=== PATIENT | female | born 1980 | race Caucasian/White ===

== ENCOUNTER 2019-09-07 18:31 | Emergency (ER) | payer BC ==
[2019-09-07 22:11] LABS: ABS Basophils 0.1 10^3/ul (0-0.2); ABS Eosinophils 0.1 10^3/ul (0-0.6); ABS Lymphocytes 2.3 10^3/ul (1.0-4.8); ABS Monocytes 0.5 10^3/ul (0-0.8); ABS Neutrophils 3.3 10^3/ul (1.5-7.7); Eosinophil % 1.2 %; Hematocrit 38 % (35-47); Hemoglobin 12.4 g/dL (12.0-16.0); Lymphocyte % 37.1 %; Mean Corpuscular HGB Conc 33 g/dL (31-36); Mean Corpuscular Hemoglobin 27 pg (27-31); Mean Corpuscular Volume 83 fL (80-97); Mean Platelet Volume 8.6 fL (7.4-10.4); Platelet Count 259 10^3/uL (150-450); Red Blood Count 4.55 10^6 /uL (3.70-4.87); Red Cell Distribution Width 16 % (10-15); White Blood Count 6.3 10^3/uL (3.5-10.8)
[2019-09-07 22:18] LABS: INR 1.04 (0.82-1.09)
[2019-09-07 22:37] LABS: ALT 14 U/L (7-52); AST 13 U/L (13-39); Albumin 4.2 g/dL (3.2-5.2); Albumin/Globulin Ratio 1.6 (1-3); Alkaline Phosphatase 50 U/L (34-104); Anion Gap 6 mmol/L (2-11); BUN/Creatinine Ratio 5.9 (8-20); Blood Urea Nitrogen 6 mg/dL (6-24); CO2 Carbon Dioxide 25 mmol/L (22-32); Calcium 9.2 mg/dL (8.6-10.3); Chloride 106 mmol/L (101-111); EGFR Non-African American 60.3 (>60); Globulin 2.6 g/dL (2-4); Glucose 112 mg/dL (70-100); Magnesium 1.8 mg/dL (1.9-2.7); Potassium 3.3 mmol/L (3.5-5.0); Sodium 137 mmol/L (135-145); Total Protein 6.8 g/dL (6.4-8.9)
[2019-09-07 22:46] LABS: C Reactive Protein < 1.00 mg/L (<8.01); HCG Pregnancy < 0.60 mIU/mL
[2019-09-07 22:50] LABS: Alcohol < 10 mg/dL (<10)
[2019-09-07 23:05] LABS: TSH (Thyroid Stimulating Horm) 2.03 mcIU/mL (0.34-5.60)
[2019-09-07] MEDS ORDERED: KCL 10 MEQ/50 ML IVPREMIX* 10 MEQ/50 ML BAG IV ONE (23:40)
--- NOTE | 2019-09-07 23:50 | ED ---
Complex/Multi-Sys Presentation - HPI Summary HPI Summary: This pt is a 39 Y/O F presenting to [facility] after being recommended here from urgent care due to weakness and vomiting that has been present since 09/04/19. She states that she has had bouts of nausea and diarrhea since the onset. She states that she was unable to get out of bed this morning when the onset occurred and she states that she felt achy and sleepy. She states that she has been feeling fatigued since 08/28/19 when she arrived back from [place]. She states that she had to call in sick to work today which is unlike her. She states that her normal heart rate is at 80-100 BPM and states that a rate of 57 BPM is very unlike her. She denies any fevers, chills, coughs, and headaches. She has no aggravating or alleviating factors. She states that she has a PMHx of depression and ran out of her medication but she has an appointment on the 23 of September. She states that a coworker gave her Clonidine to help her with anxiety and insomnia. She states that she has a SHx of smoking tobacco through electronic cigarettes. She states a FHx of HTN and her father had a ND that he survived from. She states that her sister was diagnosed with Cameron 3 weeks ago. - History Of Current Complaint Chief Complaint: EDWeakness Time Seen by Provider: 09/07/19 22:26 Hx Obtained From: Patient Onset/Duration: Gradual Onset, Lasting Days - 10, Still Present, Worse Since - today Timing: Constant Severity Currently: Moderate - 4/10 Severity Initially: Mild Location: Negative Aggravating Factor(s): nothing Alleviating Factor(s): nothing Associated Signs And Symptoms: Positive: Weakness, Palpitations - bradycardia, Nausea, Vomiting, Diarrhea, Other - fatigue, myalgia. Negative: Headache, Fever Related History: Recent Illness - states that her sister was Dx with mono, Other - recently flew from [place] - Allergies/Home Medications Allergies/Adverse Reactions: Allergies Allergy/AdvReac Type Severity Reaction Status Date / Time clonazepam [From Klonopin] Allergy Altered Verified 09/07/19 18:53 Mental Status PMH/Surg Hx/FS Hx/Imm Hx Previously Healthy: Yes Sensory History: Denies: Hx Contacts or Glasses Opthamlomology History: Denies: Hx Contacts or Glasses Psychiatric History: Reports: Hx Anxiety, Hx Depression, Other Psychiatric Issues/Disorders - Insomnia - Cancer History Hx Chemotherapy: No Hx Radiation Therapy: No - Surgical History Surgical History: None - Immunization History Immunizations Up to Date: Yes Infectious Disease History: No Infectious Disease History: Denies: Traveled Outside the [place] in Last 30 Days - Family History Known Family History: Positive: Cardiac Disease - Father had an ND, Hypertension - Social History Occupation: Employed Full-time Lives: With Family Alcohol Use: None Hx Substance Use: No Substance Use Type: Reports: None Hx Tobacco Use: Yes Smoking Status (MU): Current Every Day Smoker Type: eCigarettes Review of Systems Positive: Fatigue. Negative: Fever, Chills Positive: Palpitations - bradycardia Negative: Cough Positive: Vomiting, Diarrhea, Nausea Positive: Myalgia Positive: Weakness. Negative: Headache All Other Systems Reviewed And Are Negative: Yes Physical Exam - Summary Physical Exam Summary: General: Well-developed, Well-nourished female. No acute distress. HEENT: Normocephalic, Atraumatic. Eyes: Conjuctiva normal, PERRL. Oropharynx: Clear, mucous membranes moist, (-) exudates. Neck: Soft, FROM, (-) lymphadenopathy, (-) thyromegaly, (-) JVD. Cardiovascular: Normal sinus rhythm, (-) murmur. Lungs: Clear to auscultation bilaterally (-) wheezes, (-) rales, (-) rhonchi. Abdomen: Soft, non-tender, non-distended, (-) organomegaly, normal bowel sounds. Back: (-) CVA tenderness Extremities: No edema. Skin: Warm, dry, (-) rash. Neuro: Alert and oriented x3, no focal deficits. Psychiatric: Mood normal, affect normal. Triage Information Reviewed: Yes Vital Signs On Initial Exam: Initial Vitals Temp Pulse Resp BP Pulse Ox 98.5 F 49 16 97/60 100 09/07/19 18:48 09/07/19 18:48 09/07/19 18:48 09/07/19 18:48 09/07/19 18:48 Vital Signs Reviewed: Yes Procedures - Sedation Patient Received Moderate/Deep Sedation with Procedure: No Diagnostics - Vital Signs Vital Signs Temp Pulse Resp BP Pulse Ox 09/07/19 22:30 58 100 12/12/19 22:29 61 95/52 100 09/07/19 20:48 98.3 F 57 16 93/61 100 09/07/19 18:48 98.5 F 49 16 97/60 100 - Laboratory Lab Results: Lab Results 09/07/19 09/07/19 09/07/19 Range/Units 22:06 22:06 22:06 WBC 6.3 (3.5-10.8) 10^3/uL RBC 4.55 (3.70-4.87) 10^6 /uL Hgb 12.4 (12.0-16.0) g/dL Hct 38 (35-47) % MCV 83 (80-97) fL MCH 27 (27-31) pg MCHC 33 (31-36) g/dL RDW 16 H (10-15) % Plt Count 259 (150-450) 10^3/uL MPV 8.6 (7.4-10.4) fL Neut % (Auto) 53.1 % Lymph % (Auto) 37.1 % Cameron % (Auto) 7.7 % Eos % (Auto) 1.2 % Baso % (Auto) 0.9 % Absolute Neuts (auto) 3.3 (1.5-7.7) 10^3/ul Absolute Lymphs (auto) 2.3 (1.0-4.8) 10^3/ul Absolute Monos (auto) 0.5 (0-0.8) 10^3/ul Absolute Eos (auto) 0.1 (0-0.6) 10^3/ul Absolute Basos (auto) 0.1 (0-0.2) 10^3/ul Absolute Nucleated RBC 0.0 10^3/ul Nucleated RBC % 0.0 ESR Pending INR (Anticoag Therapy) (0.82-1.09) Sodium 137 (135-145) mmol/L Potassium 3.3 L (3.5-5.0) mmol/L Chloride 106 (101-111) mmol/L Carbon Dioxide 25 (22-32) mmol/L Anion Gap 6 (2-11) mmol/L BUN 6 (6-24) mg/dL Creatinine 1.02 H (0.51-0.95) mg/dL Est GFR ( Amer) 73.0 (>60) Est GFR (Non-Af Amer) 60.3 (>60) BUN/Creatinine Ratio 5.9 L (8-20) Glucose 112 H (70-100) mg/dL Lactic Acid 0.7 (0.5-2.0) mmol/L Calcium 9.2 (8.6-10.3) mg/dL Magnesium 1.8 L (1.9-2.7) mg/dL Total Bilirubin 0.20 (0.2-1.0) mg/dL AST 13 (13-39) U/L ALT 14 (7-52) U/L Alkaline Phosphatase 50 (34-104) U/L Troponin I 0.00 (<0.03) ng/mL C-Reactive Protein < 1.00 (<8.01) mg/L Total Protein 6.8 (6.4-8.9) g/dL Albumin 4.2 (3.2-5.2) g/dL Globulin 2.6 (2-4) g/dL Albumin/Globulin Ratio 1.6 (1-3) TSH 2.03 (0.34-5.60) mcIU/mL Beta HCG, Quant < 0.60 mIU/mL Serum Alcohol < 10 (<10) mg/dL 09/07/19 Range/Units 22:06 WBC (3.5-10.8) 10^3/uL RBC (3.70-4.87) 10^6 /uL Hgb (12.0-16.0) g/dL Hct (35-47) % MCV (80-97) fL MCH (27-31) pg MCHC (31-36) g/dL RDW (10-15) % Plt Count (150-450) 10^3/uL MPV (7.4-10.4) fL Neut % (Auto) % Lymph % (Auto) % Cameron % (Auto) % Eos % (Auto) % Baso % (Auto) % Absolute Neuts (auto) (1.5-7.7) 10^3/ul Absolute Lymphs (auto) (1.0-4.8) 10^3/ul Absolute Monos (auto) (0-0.8) 10^3/ul Absolute Eos (auto) (0-0.6) 10^3/ul Absolute Basos (auto) (0-0.2) 10^3/ul Absolute Nucleated RBC 10^3/ul Nucleated RBC % ESR INR (Anticoag Therapy) 1.04 (0.82-1.09) Sodium (135-145) mmol/L Potassium (3.5-5.0) mmol/L Chloride (101-111) mmol/L Carbon Dioxide (22-32) mmol/L Anion Gap (2-11) mmol/L BUN (6-24) mg/dL Creatinine (0.51-0.95) mg/dL Est GFR ( Amer) (>60) Est GFR (Non-Af Amer) (>60) BUN/Creatinine Ratio (8-20) Glucose (70-100) mg/dL Lactic Acid (0.5-2.0) mmol/L Calcium (8.6-10.3) mg/dL Magnesium (1.9-2.7) mg/dL Total Bilirubin (0.2-1.0) mg/dL AST (13-39) U/L ALT (7-52) U/L Alkaline Phosphatase (34-104) U/L Troponin I (<0.03) ng/mL C-Reactive Protein (<8.01) mg/L Total Protein (6.4-8.9) g/dL Albumin (3.2-5.2) g/dL Globulin (2-4) g/dL Albumin/Globulin Ratio (1-3) TSH (0.34-5.60) mcIU/mL Beta HCG, Quant mIU/mL Serum Alcohol (<10) mg/dL Result Diagrams: 09/07/19 22:06 09/07/19 22:06 Lab Statement: Any lab studies that have been ordered have been reviewed, and results considered in the medical decision making process. - EKG 1925 Cardiac Rate: Bradycardia - 42 BPM EKG Rhythm: Sinus Bradycardia ST Segment: Normal Ectopy: None EKG Comparison: No Significant Change Summary of EKG Findings: EKG at 1925 reveals sinus bradycardia with rate of 52 BPM, no acute changes, no ischemic changes. This EKG was reviewed and interpreted by Dr. Shaikh at 1927, 09/07/19. Re-Evaluation - Re-Evaluation First Eval Re-Evaluation Time: 01:07 Change: Improved Comment: I have discussed results with the patient and her fatigue is resolved. Discussed symptoms that warrant immediate return to ED Complex Multi-Symp Course/Dx Course Of Treatment: 39-year-old female presents with severe fatigue. Patient recently moved to this area. Does not have a primary care doctor established. She states she ran out of her medications including Wellbutrin and clonidine about 3 weeks ago. She states that about 10 days that she has noticed she just doesn't feel well. Feels kind of achy all over. Unable to get out of bed this morning to her work. She states she never misses work. She does note that her sister was diagnosed with mono 3 weeks ago. Patient given IV fluids and Zofran. Workup discussed with patient at length. Viral illness. Possibly mono. Discharged to home. Off work tomorrow. Advised plenty of fluids and rest. Follow-up with PCP. Follow-up sooner for any worsening symptoms. - Diagnoses Provider Diagnoses: Fatigue, Hypokalemia Discharge ED - Sign-Out/Discharge Documenting (check all that apply): Patient Departure - discharge - Discharge Plan Condition: Stable Disposition: HOME Patient Education Materials: Hypokalemia (ED), Fatigue (ED) Forms: *Work Release Referrals: [facility] [Outside] - 2 Days Additional Instructions: PLEASE FOLLOW UP WITH THE [facility] IN 1-3 DAYS AND RETURN TO THE EMERGENCY DEPARTMENT FOR ANY NEW OR WORSENING SYMPTOMS. Please drink plenty of fluids and take 2 ibuprofen tablets with food 3 times a day as needed for you muscle aches. Get plenty of rest during the weekend. - Billing Disposition and Condition Condition: STABLE Disposition: Home - Attestation Statements Document Initiated by Kailey: Yes Documenting Scribe: Tim Brooks Provider For Whom Kailey is Documenting (Include Credential): Rina Shaikh MD Scribe Attestation: Tim Louise, scribed for Rina Shaikh MD on 09/08/19 at 0147. Scribe Documentation Reviewed: Yes Provider Attestation: The documentation as recorded by the Tim araujo accurately reflects the service I personally performed and the decisions made by me, Rina Shaikh MD Status of Scribe Document: Viewed
[2019-09-07 23:52] LABS: Erythrocyte Sed Rate 15 mm/Hr (0-19)
[2019-09-08 00:31] LABS: Urine Appearance Clear; Urine Bilirubin Negative (Negative); Urine Blood Negative (Negative); Urine Color Straw; Urine Glucose Negative (Negative); Urine Ketones Negative (Negative); Urine Nitrite Negative (Negative); Urine Protein Negative (Negative); Urine Specific Gravity 1.004 (1.010-1.030); Urine Urobilinogen Negative (Negative)
[2019-09-08 00:41] LABS: Urine Benzodiazepine Screen None Detected (None Detect); Urine Opiates Screen None Detected (None Detect)
[2019-09-08 01:36] VITALS: BP 108/60
== END 2019-09-08 01:33 | disposition home or self-care (01) ==
LOC: ED 18:31
DX: R53.83 Other fatigue (principal); E86.1 Hypovolemia; F41.9 Anxiety disorder, unspecified; F32.9 Major depressive disorder, single episode, unspecified; F17.290 Nicotine dependence, other tobacco product, uncomplicated; Z88.8 Allergy status to other drugs, medicaments and biological substances
CPT/HCPCS: 36415; 80053; 80307; 80320; 81003; 83605; 83735; 84443; 84484; 84702; 85025; 85610; 85652; 86140; 86308; 86618; 87040; 93005; 96360; 99282; G0480; J3480